=== PATIENT | male | born 1995 | race African-American/Black ===

== ENCOUNTER 2024-03-28 19:39 | Emergency (ER) | payer OTHER ==
[~2024-03-28] VITALS: Ht 182.9 cm; Wt 73.0 kg
[2024-03-28 20:00] VITALS: BP 140/76; PULSE 109; TEMP 98.7; O2SAT 98
[2024-03-28 21:18] LABS: CARBON DIOXIDE 29 mEq/L (21-32); CHLORIDE 105 mEq/L (98-107); POTASSIUM 3.3 mEq/L (3.5-5.1); SODIUM 140 mEq/L (136-145)
[2024-03-28 21:19] LABS: CALCIUM 9.4 mg/dL (8.7-10.4)
[2024-03-28 21:23] LABS: BASOPHILS % 0.4 % (0.0-2.0); EOSINOPHILS % 0.2 % (0.0-5.0); GLUCOSE 98 mg/dL (70-105); HEMATOCRIT. 44.8 % (42.0-52.0); HEMOGLOBIN. 15.5 g/dL (14.0-18.0); LYMPHOCYTES % 30.1 % (20.0-50.0); MEAN CORPUSCULAR HGB CONC 34.6 g/dL (31.0-37.0); MEAN CORPUSCULAR VOLUME 89.4 fL (80.0-94.0); MEAN PLATELET VOLUME 8.6 fl (7.4-10.4); MONOCYTES % 5.1 % (2.0-8.0); NEUTROPHILS % 64.2 % (40.0-76.0); PLATELET 178 x1000/uL (130-400); RED BLOOD CELL COUNT 5.01 mill/uL (4.7-6.1); RED CELL DISTRIBUTION WIDTH 13.7 % (11.6-14.6); WHITE BLOOD COUNT 8.6 x1000/uL (4.5-11.0)
[2024-03-28 21:24] LABS: UREA NITROGEN BLOOD 13 mg/dL (9-23)
[2024-03-28] MEDS ORDERED: ACET-2708 MT (22:12)
[2024-03-28 22:45] VITALS: RESP 16
== END 2024-03-28 22:45 | disposition home or self-care (01) ==
LOC: ER 19:39
DX: R10.32 Left lower quadrant pain (principal)
CPT/HCPCS: 36415; 71045; 80048; 85025; 99284